=== PATIENT | female | born 1980 | race Caucasian/White ===

== ENCOUNTER 2017-01-17 16:34 | Emergency (ER) | payer MEDICAID ==
[~2017-01-17] VITALS: Ht 160 cm; Wt 104.3 kg
[2017-01-17 16:45] VITALS: BP 144/102
--- NOTE | 2017-01-17 19:37 | NUR ---
PATIENT LEFT WITHOUT BEING SEEN BY DR. ROYAL. NO FURTHER CARE PROVIDED FOR PATIENT.
== END 2017-01-17 19:37 | disposition left against medical advice (07) ==
LOC: MED 16:34
DX: N89.8 Other specified noninflammatory disorders of vagina (principal); Z53.21 Procedure and treatment not carried out due to patient leaving prior to being seen by health care provider